=== PATIENT | female | born 1940 | race Caucasian/White ===

== ENCOUNTER → 2017-02-09 | Outpatient (CLI) | payer MEDICARE ==
[~2017-02-09] MED LIST: AMBIEN 5MG TAB5 MG PO; AMLODIPINE10 MG PO; ASPIRIN 81MG TA81 MG PO; CARVEDILOL6.25 MG PO; HYDROCODONE1 TABLET PO; LISINOPRIL HCTZ1 TAB PO; LOVASTATIN10 MG PO; MOTRIN 400MG.400 MG PO; PERCOCET 5/3251 EACH PO; TURMERIC500 M1 PO; VERAPAMIL SR 2240 MG PO
--- NOTE | 2017-02-09 11:04 | RADIOLOGY REPORT PS360 ---
PROCEDURE: 2-D M-mode and color Doppler study INDICATIONS FOR THE TEST: Chest pain + COPD Heart Murmur Tobacco Smoking Palpitations Fatigue Syncope Edema Hypertension+Diabetes Mellitus Rheumatic Fever SOB+YOUNG Obesity+Hyperlipidemia+ Family History HD Additional History PATIENT INFORMATION HEIGHT: 64 WEIGHT:208 GENDER: Female B/P:108/48 2-D/M-MODE INTERPRETATION: 2-D MEASUREMENTS OBSERVED VALUES IN CMS Right Ventricular Dimension (RVDd) 2.7 Interventricular Septum (Thickness)(IVsd) 1.4 Left Ventricular Internal Dimensions(LVIDd) 3.5 Left Ventricular Posterior Wall (Thickness)(LVPWd) 1.1 Aortic Root 3.3 Aortic Cusp Separation 2.1 Left Atrial Dimensions (LAD) 4.2 2D 1. Left atrium is mildly enlarged, left ventricle is normal size, there is mild concentric left ventricular hypertrophy present, visually estimated ejection fraction 55% with no obvious regional wall motion abnormality. 2. The right atrium is normal size, right ventricle is mildly enlarged with normal contractility. 3. The aortic valve is minimally thickened and calcified, there is no aortic stenosis. 4. The mitral valve leaflets are minimally thickened. 5. The tricuspid valve is structurally normal. 6. The pulmonic valve is not well visualized. 7. No significant pericardial effusion noted. DOPPLER INTERROGATION: Doppler interrogation of the aortic mitral and tricuspid valvular presence of mild mitral and tricuspid regurgitation, tricuspid regurgitant jet velocity insufficient for calculation of the right ventricular systolic pressure, grade 1 diastolic dysfunction seen without tissue Doppler evidence of raised left atrial pressure. CONCLUSION: 1. Mildly enlarged left atrium, normal left ventricular size, mild concentric left ventricular hypertrophy, visually estimated ejection fraction 55% with no obvious regional wall motion abnormality. Grade 1 diastolic dysfunction seen without tissue Doppler evidence of raised left atrial pressure. 2. Mild mitral and tricuspid regurgitation, tricuspid regurgitant jet velocity insufficient for calculation of the right ventricular systolic pressure. 3. No significant pericardial effusion noted.
--- NOTE | 2017-02-09 14:25 | RADIOLOGY REPORT PS360 ---
History and Indications: History of CO, hypertension, hyperlipidemia, chest pain, shortness of breath and fatigue Procedure: Patient received 0.4 with Lexiscan, resting heart rate was 54 bpm resting blood pressure 120/48, with Lexiscan maximum heart rate achieved was 68 bpm which is less than 85% of the maximum predicted heart rate and a blood pressure was 122/51. With Lexiscan patient complained of abdominal pain and nausea. Electrocardiogram: Resting electrocardiogram showed sinus bradycardia premature ventricular complex, with Lexiscan there is no obvious there is [address] segment depression noted from the baseline EKG. The EKG portion of the Lexiscan is positive for ischemia. Cardiac stress and resting SPECT images: Cardiac stress and the suspect images were obtained technetium 99 Myoview 10.2 mCi at rest and 30.3 mCi at stress, gated SPECT further analysis of segmental wall motion and calculation of the ejection fraction also done. Cardiac stress and the suspect show a mild fixed defect in the anteroseptal wall with normal contractility in the gated SPECT is likely secondary to soft tissue attenuation from breast, no reversible ischemia seen. Computer derived ejection fraction is over 65 percent with no obvious regional wall motion abnormality, right ventricle is normal size and contractility. Conclusion: 1. The EKG portion of the Lexiscan is positive for ischemia. 2. No obvious scintigraphic evidence of reversible ischemia seen. Computer derived ejection fraction is over 65% with no obvious regional wall motion abnormality, right ventricle is normal size and contractility.
== END ==
LOC: RAD 07:11
DX: I20.9 Angina pectoris, unspecified (principal); I25.10 Atherosclerotic heart disease of native coronary artery without angina pectoris; I10 Essential (primary) hypertension; E78.5 Hyperlipidemia, unspecified
CPT/HCPCS: A9502; J2785

== ENCOUNTER → 2017-02-15 | Outpatient (CLI) | payer MEDICARE ==
--- NOTE | 2017-02-15 14:00 | RADIOLOGY REPORT PS360 ---
CT ABD PELVIS W/O CONTRAST CLINICAL INDICATION: Right flank pain KIDNEY STONE ORDERING PHYSICIAN: DARON SWEENEY PATIENT AGE: 76 years COMPARISON: 05/09/2014 TECHNIQUE: Axial images obtained with sagittal and coronal reformats. PROCEDURE: Oral Contrast: None IV Contrast: None . FINDINGS: Lung base images show significant coronary artery calcification. The liver has an unremarkable appearance. Status post cholecystectomy without biliary dilatation. The spleen, pancreas, and adrenal glands are unremarkable. Left adrenal gland somewhat prominent but is stable. There is an 8 cm left renal cyst. There is a fat-containing lesion along the lower pole the right kidney measuring up to 2 cm consistent with an angiomyolipoma which has slightly increased in size compared to the previous exam. Mild prominence of the right renal pelvicalyceal system which is developed since the previous study. Some of this could be related to parapelvic renal cyst however, mild hydronephrosis also considered. A 2 cm Right renal cortical cyst is present laterally with other smaller cortical cyst also noted. No obstructing renal or ureteral calculi evident. Prior hysterectomy. No evidence of appendicitis. There is diverticulosis of the sigmoid colon but no evidence of diverticulitis. There are bilateral fat-containing inguinal hernias. No urinary bladder calculi evident. There are degenerative changes in the lumbar spine. A sclerotic focus involves the pedicle on the right at T12 unchanged consistent with a bone island There is mild fusiform dilatation of the infrarenal abdominal aorta measuring up to 3.4 cm transverse and 3.2 cm AP previously measuring 3 x 3.2 cm. No intracranial hemorrhage. IMPRESSION: 1. No obstructing renal or ureteral calculi evident. There is mild prominence of the right renal pelvicalyceal system which may represent parapelvic renal cyst versus mild UPJ stenosis. Repeat exam with IV contrast with delayed imaging may be of further value if clinically warranted. 2. 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 3. Large left renal cyst with small right renal cortical cyst. 4. 3.4 x 3.2 cm infrarenal abdominal aortic aneurysm slightly larger. 5. Other nonacute findings as described above.
== END ==
LOC: RAD 13:19
DX: R30.9 Painful micturition, unspecified (principal)

== ENCOUNTER → 2017-07-25 | Outpatient (CLI) | payer MEDICARE ==
[2017-07-25 19:44] LABS: HEMOGLOBIN 13.2 g/dL (12.2-16.2); LYMPH # 1.4 K/mm3 (0.7-4.5); LYMPH % 24.9 % (10-50.0)
[2017-07-25 20:36] LABS: BUN 24 mg/dL (7-18)
[2017-07-25 20:39] LABS: GFR (ESTIMATED) 40 ML/MIN (59-)
== END ==
LOC: LAB 19:24
PROVIDERS: Nurse Practitioner Family
DX: G62.9 Polyneuropathy, unspecified (principal); E78.5 Hyperlipidemia, unspecified; I11.9 Hypertensive heart disease without heart failure; Z79.899 Other long term (current) drug therapy

== ENCOUNTER → 2017-08-22 | Outpatient (CLI) | payer MEDICARE ==
[~2017-08-22] MED LIST changes: +GOOD NEIGHBOR P20 M1
--- NOTE | 2017-08-22 12:11 | RADIOLOGY REPORT PS360 ---
ARTERIAL/GOD-LLIEKKDGRVB-QPT FOOT PAIN, claudication, hypertension, previous smoker, rest pain, cool extremities with skin changes ORDERING PHYSICIAN: YSABEL COLLINS DPM PATIENT AGE: 77 years TECHNIQUE: Segmental pressures obtained of both right and left leg. These are compared to brachial blood pressure to yield index at each level sampled including summary NIKUNJ. The data sheets from the procedure are available in PACS FINDINGS Rest study only performed today No prior studies available for comparison. Blood pressures reported are in millimeters mercury. RIGHT LEG NIKUNJ = 0.6 Right TBI is 0.6. Brachial BP: 122 Thigh BP: 115 Calf BP: 67 Ankle PT: 77 Ankle DP : 51 Digit =57 LEFT LEG NIKUNJ = 0.7 Left TBI 0.4 Brachial BPD: 118 Thigh BP: 89 Calf BP: 70 Ankle PT:84 Ankle DP: 67 Digit = 48 Pulses and waveforms: The diminished pulses and waveforms IMPRESSION: 1. Low ABIs bilaterally suggesting moderate to severe atherosclerotic changes. The pressures drop from the thigh to the calf on the right suggesting a stenosis of the popliteal artery. Consider CT angiogram of the aorta and lower extremities for further evaluation. 2. Bilateral low toe brachial indices left lower than right consistent with small vessel disease as well
== END ==
LOC: RT 09:26
DX: R09.89 Other specified symptoms and signs involving the circulatory and respiratory systems (principal); M79.671 Pain in right foot; M79.672 Pain in left foot

== ENCOUNTER → 2017-08-23 | Outpatient (CLI) | payer MEDICARE ==
--- NOTE | 2017-08-23 11:56 | RADIOLOGY REPORT PS360 ---
HIP RT 2-3V W/PELVIS IF PERFOR HISTORY: RT HIP PAIN ORDERING PHYSICIAN: Roma Mayers APRN PATIENT AGE: 77 years COMPARISON: None FINDINGS: Mild osteoarthritic changes are present involving the hips. There is facet arthritic change at L5-S1. No fracture or dislocation. No destructive process evident. Mild degenerative changes of SI joints. IMPRESSION: Mild osteoarthritic change of the hips, SI joints, and facet joints at L5-S1
== END ==
LOC: RAD 10:55
DX: M25.551 Pain in right hip (principal)

== ENCOUNTER → 2017-09-01 | Day surgery (SDC) | payer MEDICARE ==
[2017-09-01 08:20] LABS: HEMOGLOBIN 11.9 g/dL (12.2-16.2); LYMPH % 33.8 % (10-50.0)
[2017-09-01 08:28] LABS: BUN 26 mg/dL (7-18); GFR (ESTIMATED) 48 ML/MIN (59-)
[2017-09-01 12:43] LABS: URINE BILIRUBIN - DIPSTICK NEGATIVE (NEG); URINE BLOOD 1+ (NEG)
[2017-09-01 13:05] LABS: URINE SQUAMOUS CELLS OCC #/hpf (0-5)
--- NOTE | 2017-09-01 13:39 | RADIOLOGY REPORT PS360 ---
PROCEDURE: 1. Catheter placement in the abdominal aorta 2. Abdominal aortography 3. Repositioning of the catheter in the abdominal aorta 4. Bilateral iliofemoral runoff 5. Catheter placement in the right posterior tibialis artery 6. Right posterior tibialis artery angiogram 7. Angioplasty to the right popliteal artery 8. Angioplasty to the right superficial femoral artery 9. Stent deployment to the right popliteal artery extending back through the entire right superficial femoral artery INDICATION: 1. Peripheral artery disease 2. [place] class III claudication Occluded right superficial femoral artery right popliteal artery Informed consent was obtained prior to the procedure. COMPLICATIONS: None ESTIMATED BLOOD LOSS: Blood loss less than 10 cc. TECHNIQUE:1% lidocaine used to anesthetize the left femoral groin. Left femoral artery was accessed via the Seldinger technique and a 5 [place] sheath was placed in the left femoral artery. The pigtail catheter was advanced over a J-wire into the abdominal aorta and abdominal aortography was performed. The catheter was then repositioned and bilateral iliofemoral runoff was then performed. Following this an advantage wire was placed in the pigtail catheter and a JR4 catheter was used to cannulate the right common iliac artery. The advantage wire was then advanced into the right superficial femoral artery. The short 5 [place] sheath was exchanged for a long 6 [place] destination sheath. 8000 units of heparin was administered intravenously. Using a treadmill place her catheter loop was created and the advantage wire and the unit was passed through the chronically occluded SFA through the popliteal artery. The wire was then used to selectively intubate the peroneal artery and the [place] Fany catheter was advanced. Angiography was performed to confirm the presence within the true lumen. Following this 4 mm balloons were used to predilate the SFA and popliteal artery. An additional 5 mm balloon was then taken from the popliteal artery back into the superficial femoral artery and dilated. Following this multiple 5 mm supera stents were stacked throughout the right popliteal artery into the right superficial femoral artery. Once in the mid SFA 5.5 mm stents were then stacked with the mid and proximal segment. This was predilated with a 5.5 mm balloon prior to the 5.5 stent being placed. At the end of the procedure a 7 mm x 40 mm Yuan absolute pro stent was deployed in the proximal SFA extending back into its ostium making sure it did not encroach upon the profunda femoris artery. A 6 mm x 20 mm balloon was used to post dilate the proximal portion. Following this angiography with unilateral runoff from the groin to the foot was performed. At the end the procedure the apparatus was removed Perclose cannot be deployed therefore patient transferred the postop holding area in stable condition for sheath removal ANGIOGRAPHIC RESULTS: The suprarenal abdominal aorta is normal The mesenteric arteries are normal The renal arteries are singular and normal The infrarenal abdominal aorta has a small aneurysm The bilateral common iliac arteries have ostial 30-40% stenoses The bilateral internal iliac arteries are normal as are the bilateral external iliac arteries The bilateral common femoral arteries are normal The right profunda femoris artery has proximal 40% stenoses The right superficial femoral artery is occluded ostially and throughout its entire course The proximal popliteal artery is occluded and reconstitutes in the distal segment. The anterior tibialis artery and posterior tibialis artery are widely patent and supply the foot while the peroneal artery has mild disease in the mid segment The left superficial femoral artery is ostially occluded and reconstitutes in its distal segment The left popliteal artery is severely diseased in its proximal segment moderate disease in its mid segment. 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
[2017-09-01 16:35] VITALS: BP 142/69
[2017-09-01 17:35] VITALS: BP 129/52
[2017-09-01 18:35] VITALS: BP 136/70
[2017-09-01 19:35] VITALS: BP 128/68
== END ==
LOC: CATHLAB 07:36
PROVIDERS: Internal Medicine
PROC: 047M34Z Dilation of Right Popliteal Artery with Drug-eluting Intraluminal Device, Percutaneous Approach (ICD-10-PCS; 2017-09-01)
PROC: B41F1ZZ Fluoroscopy of Right Lower Extremity Arteries using Low Osmolar Contrast (ICD-10-PCS; 2017-09-01)
PROC: 047K34Z Dilation of Right Femoral Artery with Drug-eluting Intraluminal Device, Percutaneous Approach (ICD-10-PCS; 2017-09-01)
PROC: B41D1ZZ Fluoroscopy of Aorta and Bilateral Lower Extremity Arteries using Low Osmolar Contrast (ICD-10-PCS; principal; 2017-09-01 09:45)
DX: I70.211 Atherosclerosis of native arteries of extremities with intermittent claudication, right leg (principal); I70.92 Chronic total occlusion of artery of the extremities; Z72.0 Tobacco use; I73.9 Peripheral vascular disease, unspecified; I25.10 Atherosclerotic heart disease of native coronary artery without angina pectoris; E78.5 Hyperlipidemia, unspecified; E66.9 Obesity, unspecified; N18.2 Chronic kidney disease, stage 2 (mild); I13.10 Hypertensive heart and chronic kidney disease without heart failure, with stage 1 through stage 4 chronic kidney disease, or unspecified chronic kidney disease
CPT/HCPCS: C1725; C1766; C1769; C1876; C1894; J1644; J2720; Q9966